=== PATIENT | female | born 1950 | race Caucasian/White ===

== ENCOUNTER → 2017-01-21 | Outpatient (CLI) | payer MEDICARE, OTHER ==
[~2017-01-21] MED LIST: ACETAMINOPHEN PO; ALBUTEROL MININEB NEB; ALBUTEROL17 GM INH; ALEVE PO; ALEVE220 M1 PO; ASMANEX; ASMANEX INH; ASPIRIN PO; ASPIRIN81 MG PO; CARDIZEM CD PO; CIPRO PO; CLARITIN D PO; CLARITIN10 MG PO; DULERA 100 MCG/13 GM; FLOMAX0.4 M1 PO; LEVAQUIN PO; LEVAQUIN750 M1 PO; LEXAPRO PO; LIDODERM30 EA TOP; LIPITOR PO; LISINOPRIL20 MG PO; MEDROL PO; MUCINEX DM1 TAB.SR . PO; NASACORT AQ16.5 GM; NASONEX17 GM; PREDNISONE PO; PYRIDIUM PO; ROBITUSSIN-COU237 ML PO; SINGULAIR PO; SPIRIVA18 MCG INH; XOPENEX HFA15 GM INH; XOPENEX HFA15 GM NEB; ZITHROMAX PO; [UNRECOGNIZED DRUG - OTHER] INH; [UNRECOGNIZED DRUG - OTHER] PO
--- NOTE | ~2017-01-21 | CR63 ---
[facility] A Service of [facility] & [facility] RADIOLOGY TEXT RESULTS PATIENT: CHINA LINDO LOCATION: [facility] : 52 UNIT #: [id number] AGE: [address]: Santa Mckeon MD SEX: F ORDER DR: [id number] [facility] [address] [place], [place] [address] [id number] O MR#: [id number] Acc #: [id number] NAME: CHINA LINDO : 1950 SEX: F STUDY DATE/TIME: 01/21/2017 18:06 UNIT: [facility] ROOM: STUDY DESCRIPTION: CR Chest 2 View Attending Physician: Santa Mckeon M.D. Referring Physician: Santa Mckeon M.D. Ordering Physician: Santa Mckeon M.D. Primary Care Physician: Santa Mckeon M.D. MEDICAL IMAGING REPORT This report is preliminary unless electronic signature is present EXAM Chest PA and lateral 01/21/2017 COMPARISON 04/03/2015. HISTORY Sinus congestion, fever for 3 days. FINDINGS PA and lateral views are obtained. The cardiovascular configuration remains normal and the lungs clear. CONCLUSION Stable chest. No active disease. Dictated by... Brody Ponce M.D. THIS IS AN ELECTRONICALLY VERIFIED REPORT Brody Ponce M.D. at 01/25/2017 5:10 PM TONY/mackenzie TD: 01/22/2017 08:32 JOB #: [id number] MEDICAL IMAGING REPORT Page 1 of 1 COPY
== END | disposition home or self-care (01) ==
LOC: CRAD 17:49
DX: R09.81 Nasal congestion (principal); R50.9 Fever, unspecified; R09.89 Other specified symptoms and signs involving the circulatory and respiratory systems
CPT/HCPCS: 71020